=== PATIENT | male | born 1975 | race Caucasian/White ===

== ENCOUNTER → 2021-04-14 12:46 | Outpatient (ROUT) | payer OTHER, SELFPAY ==
[2021-04-14 13:59] LABS: COVID19 -Nasal RAPID POSITIVE (Negative)
== END ==
PROVIDERS: Visit Provider Family Medicine
DX: U07.1 COVID-19 (principal)
CPT/HCPCS: 87635

== ENCOUNTER → 2021-09-20 11:57 | Outpatient (CLI) | payer OTHER, SELFPAY ==
[2021-09-20 13:04] LABS: Influenza A - CEPHEID Flu A NEGATIVE (NEGATIVE); Influenza B - CEPHEID Flu B NEGATIVE (NEGATIVE)
[2021-09-20 13:24] LABS: COVID-19 CEPHEID PCR (VTM/NP) Negative (Negative)
== END ==
PROVIDERS: Visit Provider Physician Assistant
DX: Z20.822 Contact with and (suspected) exposure to COVID-19 (principal); R09.81 Nasal congestion
CPT/HCPCS: 0240U

== ENCOUNTER 2022-06-22 00:15 | Emergency (ER) | payer OTHER, MEDICAID, SELFPAY ==
[2022-06-22] VITALS (11 sets, daily range): BP systolic 162–217; BP diastolic 75–100; PULSE 64–85; RESP 17–32; TEMP 36.9; O2SAT 94–99; BMI 44.4
--- NOTE | 2022-06-22 00:20 | ED_ITS ---
HPI - SOB/Dyspnea General Chief Complaint: Shortness of Breath/Dyspnea Stated Complaint: hard time breathing, panic attacks Time Seen by Provider: 06/22/22 00:19 History of Present Illness HPI Narrative: 47-year-old male former smoker with history of coronary artery disease, CHF, COPD presents with a chief complaint of difficulty breathing for about the past week and feeling panicky. He states that he is had increasing shortness of breath, particularly when he lays flat and a harsh sounding cough. He is not dizzy nor weak or lightheaded. He denies any sputum production. He is had no runny nose, sore throat nor nausea, vomiting or diarrhea. He denies any exertional symptoms or recent travel. He denies any history of blood clot or known cancer. He denies any weight gain or swelling of his lower extremities. He denies any change in his medications or diet. Related Data Previous Rx's Medication Instructions Recorded azithromycin 250 mg tablet See Rx Instructions PO .COMPLEX #6 09/20/21 tabs amoxicillin 500 mg-potassium 1 tab PO Q8H bacterial sinusitis 06/16/22 clavulanate 125 mg tablet 10 days #30 tabs (Augmentin) doxycycline hyclate 100 mg tablet 100 mg PO BID #20 tabs 06/22/22 prednisone 20 mg tablet 40 mg PO DAILY 5 days #10 tabs 06/22/22 Allergies Allergy/AdvReac Type Severity Reaction Status Date / Time lisinopril Allergy Severe Hypotension Verified 06/22/22 00:29 Review of Systems Review of Systems Narrative: GENERAL: Denies chills, fatigue, malaise, fever, sweats. HEENT: Denies sinus pain, ear pain, sore throat, difficulty swallowing, dizzi ness. RESPIRATORY: See HPI CARDIOVASCULAR: Denies chest pain, palpitations, orthopnea, edema, GASTROINTESTINAL: Denies nausea, vomiting, abdominal pain, diarrhea, constipation, melena. : Denies dysuria, frequency, incontinence, hematuria, urinary retention. MUSCULOSKELETAL: denies weakness, joint pain, or bony pain SKIN: Denies rash, skin lesions, or other NEUROLOGIC: Denies weakness, headache, numbness, change in speech, confusion, seizures, incoordination. PSYCHIATRIC: No concerning psychosocial issues. 12 point review of systems is negative except for those stated above Patient History Social History Smoking Status: Former smoker Smoking Status: Former smoker Exam Narrative Exam Narrative: GENERAL: [47] year old patient appears stated age. Well-developed patient, in mild distress. Anxious HEAD: Atraumatic. Normocephalic. EYES: Pupils equal round and reactive. Extraocular motions intact. No scleral icterus. No injection or drainage. ENT: Nose without bleeding, purulent drainage. Throat without erythema, tonsillar hypertrophy or exudate. Airway patent. NECK: Trachea midline. Non tender CARDIOVASCULAR: Regular rate and rhythm without murmurs, gallops, or rubs. RESPIRATORY: Tachypnea, harsh breath sounds with prolonged expiratory phase, coarse in the bases, no rales or rhonchi GASTROINTESTINAL: Abdomen soft, non-tender, nondistended. EXTREMITIES: No edema or joint tenderness. BACK: Nontender without deformity or crepitance. No flank tenderness. NEURO: AOx3. SKIN: No rash or erythema of visible areas Initial Vital Signs Initial Vital Signs: Vital Signs Temperature 98.4 F 06/22/22 00:29 Pulse Rate 80 06/22/22 00:29 Respiratory Rate 28 H 06/22/22 00:29 Blood Pressure 217/100 H 06/22/22 00:29 Pulse Oximetry 94 06/22/22 00:29 Oxygen Delivery Method 06/22/22 00:29 Course Orders Ordered: ED Orders 06/22/22 00:25 XR chest 2V Stat 06/22/22 00:29 Complete Blood Count AUTO DIFF Stat Comprehensive Metabolic Panel Stat D Dimer Stat Magnesium Stat NT-proBNP (BNP-Adult 18+) Stat Procalcitonin Stat Troponin & CK Cardiac Panel Stat 06/22/22 00:30 Covid-19 + FLU A/B + RSV - PCR Stat Discontinued Medications Albuterol/Ipratropium (Albuterol/Ipratropium 3 Ml Ampul) 3 ml INH NOW ONE Stop: 06/22/22 00:33 Last Admin: 06/22/22 00:55 Dose: 3 ml Documented By: RHYS Methylprednisolone (Methylprednisolone 125 Mg/2 Ml Vial) 125 mg IV NOW ONE Stop: 06/22/22 00:33 Last Admin: 06/22/22 00:47 Dose: 125 mg Documented By: TANA Reevaluation(s) Reevaluation #1: Blood pressure initially in the 200s has dropped the 170s after initial evaluation and treatments. No specific antihypertensive therapy initiated. Vital Signs Vital signs: Vital Signs - 8 hr 06/22/22 00:29 06/22/22 01:07 Temperature 98.4 F Pulse Rate 80 77 Respiratory Rate 28 H 24 Blood Pressure 217/100 H Pulse Oximetry 94 99 Oxygen Delivery Method Room Air Aerosol Mask MDM - SOB/Dyspnea Lab Data Result diagrams: 06/22/22 00:29 06/22/22 00:29 Labs: Lab Results 06/22/22 06/22/22 06/22/22 Range/Units 00:29 00:29 00:29 WBC 10.5 (4.5-11.0) X10^3/uL RBC 5.86 (4.5-5.9) X10^6/uL Hgb 16.2 (13.5-17.5) g/dL Hct 47.6 (41-53) % MCV 81.3 (80-100) fL MCH 27.7 (26-34) PG MCHC 34.0 (30-36) % RDW 14.0 (11.6-14.8) % Plt Count 239 (150-400) X10^3/uL Neut % (Auto) 69.7 (50-75) % Lymph % (Auto) 18.8 L (25-40) % [place] % (Auto) 8.4 (3-14) % Eos % (Auto) 2.2 (2-4) % Baso % (Auto) 0.9 (0-2) % Neut # (Auto) 7300 H (3100-9139) /uL Lymph # (Auto) 2000 (9022-6253) /uL [place] # (Auto) 900 (0-900) /uL Eos # (Auto) 200 (0-450) /uL Baso # (Auto) 100 (0-100) /uL D-Dimer 298 (<500) ng/ml Sodium 138 (137-145) mmol/L Potassium 4.0 (3.4-5.1) mmol/L Chloride 104 (98-107) mmol/L Carbon Dioxide 24 (22-32) mmol/L BUN 13 (9-20) mg/dL Creatinine 0.95 (0.66-1.25) mg/dL Estimated GFR > 60 (>60) mL/min BUN/Creatinine Ratio 13.7 (6-22) Glucose 177 H (70-100) mg/dL Calcium 8.9 (8.4-10.2) mg/dL Magnesium 1.9 (1.6-2.3) mg/dL Total Bilirubin 0.5 (0.2-1.3) mg/dL AST 29 (17-59) IU/L ALT 57 H (<50) IU/L Alkaline Phosphatase 83 (38-126) U/L Total Creatine Kinase 197 H (55-170) U/L CK-MB (CK-2) 0.98 (<2.37) ng/mL CK-MB (CK-2) Rel Index 0.5 L (1.5-5.0) % Troponin I < 0.012 (0.01-0.034) ng/mL NT-Pro-B Natriuret Pep 25 (<125) pg/mL Total Protein 8.4 H (6.3-8.2) g/dL Albumin 4.6 (3.5-5.0) g/dL Globulin 3.8 (1.7-4.1) g/dL Albumin/Globulin Ratio 1.2 (1.0-2.8) Procalcitonin (<0.5) ng/mL SARS-CoV-2 (PCR) (Negative) Influenza A (RT-PCR) (NEGATIVE) Influenza B (RT-PCR) (NEGATIVE) RSV (PCR) (Negative) 06/22/22 06/22/22 Range/Units 00:29 00:30 WBC (4.5-11.0) X10^3/uL RBC (4.5-5.9) X10^6/uL Hgb (13.5-17.5) g/dL Hct (41-53) % MCV (80-100) fL MCH (26-34) PG MCHC (30-36) % RDW (11.6-14.8) % Plt Count (150-400) X10^3/uL Neut % (Auto) (50-75) % Lymph % (Auto) (25-40) % [place] % (Auto) (3-14) % Eos % (Auto) (2-4) % Baso % (Auto) (0-2) % Neut # (Auto) (3591-3067) /uL Lymph # (Auto) (1876-8609) /uL [place] # (Auto) (0-900) /uL Eos # (Auto) (0-450) /uL Baso # (Auto) (0-100) /uL D-Dimer (<500) ng/ml Sodium (137-145) mmol/L Potassium (3.4-5.1) mmol/L Chloride (98-107) mmol/L Carbon Dioxide (22-32) mmol/L BUN (9-20) mg/dL Creatinine (0.66-1.25) mg/dL Estimated GFR (>60) mL/min BUN/Creatinine Ratio (6-22) Glucose (70-100) mg/dL Calcium (8.4-10.2) mg/dL Magnesium (1.6-2.3) mg/dL Total Bilirubin (0.2-1.3) mg/dL AST (17-59) IU/L ALT (<50) IU/L Alkaline Phosphatase (38-126) U/L Total Creatine Kinase (55-170) U/L CK-MB (CK-2) (<2.37) ng/mL CK-MB (CK-2) Rel Index (1.5-5.0) % Troponin I (0.01-0.034) ng/mL NT-Pro-B Natriuret Pep (<125) pg/mL Total Protein (6.3-8.2) g/dL Albumin (3.5-5.0) g/dL Globulin (1.7-4.1) g/dL Albumin/Globulin Ratio (1.0-2.8) Procalcitonin 0.06 (<0.5) ng/mL SARS-CoV-2 (PCR) Negative (Negative) Influenza A (RT-PCR) Flu a negative (NEGATIVE) Influenza B (RT-PCR) Flu b negative (NEGATIVE) RSV (PCR) Negative (Negative) Imaging Data Chest x-ray: Radiologist's Impression: [address] [id number] ReportSigned Patient: Rachelle Robles WMR#: [id number]: [id number]:[id number]/Sex: 76 / FDate of Service: 06/21/22Loc: EDAccession Number: [id number] Procedure: XR chest 2V Ordering Provider: Amol Narvaez D.O. PROCEDURE: XR CHEST 2V INDICATIONS: Right side pleuritic type chest pain, known lung CA TECHNIQUE: 2 views of the chest were acquired. COMPARISON: [facility], CT, CT CHEST W CON, 06/01/2022, 9:22. [facility], CR, XR CHEST 2V, 05/29/2022, 19:18. FINDINGS: Surgical changes and devices: The right internal jugular Port-A-Cath appears stable in position. Lungs and pleura: There are patchy bilateral opacities as well as confluent opacities in the right upper lung zone redemonstrated. Findings are similar to the prior chest x-ray. There is a persistent small left pleural effusion as well as a loculated right apical effusion. No evidence of pneumothorax. Mediastinum: Mediastinal contours are normal. Heart size is normal. Bones and chest wall: No suspicious bony abnormalities. Soft tissues appear unremarkable. IMPRESSION: 1. Persistent loculated right apical effusion and small left layering effusion which appear similar to the recent studies. 2. Persistent patchy bilateral opacities with areas of confluence in the right upper lung zone consistent with history of lung cancer and posttreatment changes. Overall findings are similar to the recent prior studies. Dictated by: Sterling Chang M.D. on 06/22/2022 at 0:53 Approved by: Sterling Chang M.D. on 06/22/2022 at 1:06 MDM Narrative Medical decision making narrative: Multiple etiologies for patient's symptoms considered including: [Pulmonary embolism versus CHF exacerbation versus COPD exacerbation versus pneumonia versus atypical pneumonia versus myocardial infarction versus other Multiple causes of chest pain considered including AR, PE, pneumothorax, pneumonia, aortic dissection, and pleurisy. Patient reports no radiation, no diaphoresis, no provocation with exertion, and no vomiting. Imaging would suggest against typical pneumonia. Furthermore he has no fever, typical lung sounds, elevated white blood cell count, procalcitonin. CHF exacerbation given reported shortness breath and orthopnea, however no swelling, exertional dyspnea, classic findings on imaging or elevated BNP. Pulmonary embolism considered but advanced imaging not pursued given negative D-dimer. Coarse lung sounds, improvement with bronchodilators and steroids would suggest a COPD exacerbation. Given chronicity of his symptoms and history of smoking we discussed the utility of coverage for atypical pneumonia, it is recognized that he is currently on a penicillin derivative for the treatment of sinusitis, however this is not likely to provide great coverage for atypicals so he is encouraged to take both Patient's symptoms improved over duration of stay with above-stated therapies. Findings and discharge diagnosis discussed with patient/family followed by verbalization of understanding Return precautions discussed with patient/family whom verbalize understanding. Discharge Plan Departure Patient Disposition: Home Clinical Impression: Acute exacerbation of chronic obstructive pulmonary disease, Atypical pneumonia Instructions: DI for Atypical Pneumonia Activity Restrictions/Additional Instructions: *You have been diagnosed with [COPD exacerbation and atypical pneumonia] *What to do: *Please continue to take your regular medications as directed. [x ] New medication prescriptions sent to your pharmacy: [ [facility]] [ ] New medication written as a paper prescription [ ] No new medications given *Please follow up with your primary care provider on Wednesday as planned, however as we discussed, please still call the office and let them know that you were seen in the emergency department so they may review the records at your appointment *Return to Emergency Department if you should have any new, worsening or concerning symptoms, such as [fever greater than 101 F, shaking chills, worsening pain, persistent vomiting or other bothersome symptoms] Prescriptions: New doxycycline hyclate 100 mg tablet 100 mg PO BID Qty: 20 0RF prednisone 20 mg tablet 40 mg PO DAILY 5 Days Qty: 10 0RF No Action azithromycin 250 mg tablet See Rx Instructions PO .COMPLEX Qty: 6 0RF Rx Instructions: Take 2 tablets (500mg) by mouth today (day 1), then 1 tablet (250mg) by mouth for 4 days (days 2-5). Finish all of this medication. amoxicillin-pot clavulanate [Augmentin] 500-125 mg tablet 1 tab PO Q8H 10 Days Qty: 30 0RF Referrals: Miscellaneous,Doctor, MD [Primary Care Provider] -
--- NOTE | 2022-06-22 00:25 | DI.RAD.S_ITS ---
PROCEDURE: XR CHEST 2V INDICATIONS: SOB TECHNIQUE: 2 views of the chest were acquired. COMPARISON: None. FINDINGS: Surgical changes and devices: There are postsurgical changes in the mediastinum. Lungs and pleura: Lungs are clear. No pleural effusions or pneumothorax. Mediastinum: Mediastinal contours are normal. Heart size is normal. Bones and chest wall: No suspicious bony abnormalities. Soft tissues appear unremarkable. IMPRESSION: 1. No acute cardiopulmonary disease. Dictated by: Sterling Chang M.D. on 06/22/2022 at 1:27 Approved by: Sterling Chang M.D. on 06/22/2022 at 1:29
[2022-06-22 00:43] LABS: Add Manual Diff / Slide Review NO; Basophils Absolute Auto 100 /uL (0-100); Basophils Percent Auto 0.9 % (0-2); Eosinophils Absolute Auto 200 /uL (0-450); Eosinophils Percent Auto 2.2 % (2-4); Hematocrit 47.6 % (41-53); Hemoglobin 16.2 g/dL (13.5-17.5); Lymphocytes Absolute Auto 2000 /uL (1100-4500); Lymphocytes Percent Auto 18.8 % (25-40); Mean Corpuscular Hemoglobin 27.7 PG (26-34); Mean Corpuscular Volume 81.3 fL (80-100); Monocytes Absolute Auto 900 /uL (0-900); Monocytes Percent Auto 8.4 % (3-14); Neutrophils Absolute Auto 7300 /uL (1500-7000); Neutrophils Percent Auto 69.7 % (50-75); Platelet Count 239 X10^3/uL (150-400); Red Blood Cell Count 5.86 X10^6/uL (4.5-5.9); White Blood Cell Count 10.5 X10^3/uL (4.5-11.0)
[2022-06-22] MEDS: methylPREDNISolone 125 MG/2 ML VIAL IV (00:47)
[2022-06-22 00:49] LABS: D Dimer 298 ng/ml (<500)
[2022-06-22 00:52] LABS: Alanine Aminotransferase 57 IU/L (<50); Albumin 4.6 g/dL (3.5-5.0); Albumin Globulin Ratio 1.2 (1.0-2.8); Alkaline Phosphatase 83 U/L (38-126); Aspartate Aminotransferase 29 IU/L (17-59); BUN Creatinine Ratio 13.7 (6-22); Bilirubin Total 0.5 mg/dL (0.2-1.3); Blood Urea Nitrogen 13 mg/dL (9-20); Calcium 8.9 mg/dL (8.4-10.2); Carbon Dioxide 24 mmol/L (22-32); Chloride 104 mmol/L (98-107); Creatine Kinase 197 U/L (55-170); Estimated Glomerular Filt Rate > 60 mL/min (>60); Globulin 3.8 g/dL (1.7-4.1); Glucose 177 mg/dL (70-100); HEMOLYSIS 22 (0-50); Magnesium 1.9 mg/dL (1.6-2.3); Sodium 138 mmol/L (137-145); Total Protein 8.4 g/dL (6.3-8.2)
[2022-06-22] MEDS: ALBUTEROL/IPRATROPIUM 3 ML AMPUL INH (00:55)
[2022-06-22 01:04] LABS: NT-proBNP (BNP-Adult 18+) 25 pg/mL (<125); Troponin I < 0.012 ng/mL (0.01-0.034)
[2022-06-22 01:07] LABS: CKMB % Relative Index 0.5 % (1.5-5.0); Creatine Kinase MB 0.98 ng/mL (<2.37)
[2022-06-22 01:08] LABS: Procalcitonin 0.06 ng/mL (<0.5)
[2022-06-22 01:17] LABS: Influenza A - CEPHEID Flu A NEGATIVE (NEGATIVE); Influenza B - CEPHEID Flu B NEGATIVE (NEGATIVE); Respiratory Syncytial Virus Negative (Negative)
[2022-06-22 01:21] LABS: COVID-19 CEPHEID 4-PLEX PCR Negative (Negative)
== END 2022-06-22 02:39 | disposition home or self-care (01) ==
PROVIDERS: Emergency Provider Emergency Medicine
DX: J44.1 Chronic obstructive pulmonary disease with (acute) exacerbation (principal); J18.9 Pneumonia, unspecified organism; Z20.822 Contact with and (suspected) exposure to COVID-19
CPT/HCPCS: 0241U; 36415; 71046; 80053; 82550; 82553; 83735; 83880; 84145; 84484; 85025; 85379; 94640; 96374; 99284; J2930

== ENCOUNTER → 2022-08-21 13:35 | Outpatient (CLI) | payer OTHER, MEDICAID, SELFPAY ==
[2022-08-21 14:17] LABS: COVID19 -Nasal RAPID Negative (Negative)
== END ==
PROVIDERS: PCP Family Medicine; Visit Provider Surgery
DX: Z20.822 Contact with and (suspected) exposure to COVID-19 (principal); Z01.812 Encounter for preprocedural laboratory examination
CPT/HCPCS: 87635; C9803

== ENCOUNTER 2022-08-24 14:17 | Day surgery (SDC) | payer OTHER, MEDICAID, SELFPAY ==
--- NOTE | 2022-08-24 | PATH_ITS ---
[facility] Accession Number: [id number] . 01 Material submitted: . PART A: colon - ASCENDING COLON POLYP PART B: colon - DESCENDING COLON POLYP . 01 Diagnosis: A. Ascending Colon Polyp: Tubular adenoma. . B. Descending Colon Polyp: Tubular adenoma. MRV 08/26/2022 1505 Local . 01 Electronically signed: . Jam Parson MD, PhD, Pathologist NPI- [id number] . 01 Gross description: . Part A: ASCENDING COLON POLYP: Received in formalin is 1 fragment(s) of ware, soft tissue measuring 0.3 x 0.2 x 0.1 cm submitted entirely in 1 cassette(s) Part B: DESCENDING COLON POLYP: Received in formalin are multiple fragment(s) of ware, soft tissue measuring 2.7 x 0.5 x 0.1 cm in aggregate submitted entirely in 1 cassette(s) /CPE 08/25/2022 1026 Local . 01 Pathologist provided ICD-10: D12.2, D12.4 . 01 CPT . 724781, 675974 Specimen Comment: A courtesy copy of this report has been sent to [phone], [phone] Specimen Comment: [id number] Performed at: 01 [facility] [address] [place] [address], [place], [place] [id number] MD Sterling Villanueva MD Phone: [phone]
[2022-08-24 15:42] VITALS: BMI 44.4
--- NOTE | 2022-08-24 15:51 | PM.HP.1 ---
History of Present Illness History of Present Illness Date Patient Seen: 08/24/22 Time Patient Seen: 15:51 Chief complaint: Colonoscopy Narrative: I reviewed my recent office note. No significant changes. Patient History Family & Social History Social History: household members spouse Tobacco & Substance use: Smoking Status Former smoker alcohol intake never Substance Use Type does not use Meds Home Medications and Allergies Home Medications Medication Instructions Recorded Confirmed Type amlodipine 10 mg tablet 10 mg PO DAILY 08/24/22 08/24/22 History aspirin 81 mg chewable tablet 81 mg PO BID 08/24/22 08/24/22 History atorvastatin 80 mg tablet 80 mg PO BEDTIME 08/24/22 08/24/22 History gabapentin 300 mg capsule 300 mg PO BEDTIME PRN Pain (Scale 08/24/22 08/24/22 History Score 1-3) metoprolol succinate 100 mg 100 mg PO DAILY 08/24/22 08/24/22 History capsule sprinkle, ext. release 24 hr telmisartan 80 mg tablet 80 mg PO DAILY 08/24/22 08/24/22 History Allergies Allergy/AdvReac Type Severity Reaction Status Date / Time lisinopril Allergy Severe Hypotension Verified 08/24/22 15:36 Review of Systems Review of Systems ROS: Yes All systems reviewed with the patient and are negative except as otherwise documented Exam Const General: cooperative HENMT Head: normal to inspection Eyes General: appearance normal, both eyes and all related structures Neck Neck: normal visual inspection Chest Chest: normal inspection of the chest Resp Effort & Inspection: normal respiratory effort Cardio Rate: regular rate GI Inspection: normal to inspection Skin General: no rashes or lesions noted Neuro General: patient alert and patient awake Extrem General: normal to inspection and no pedal edema Psych Appearance: grossly normal Assessment & Plan Assessment & Plan narrative: 47-year-old male with a positive FIT. Colonoscopy is pursued today. Time Spent With Patient Critical Care time: I spent a total of [] minutes of critical care time on this patient's care today; this time is exclusive of procedural time.
--- NOTE | 2022-08-24 15:52 | PM.PREOP ---
Pre-operative Note COVID-19 COVID-19 status: Negative Result date/Date tested (Pos, Neg/Pending): 08/21/22 Criteria for continued procedure: Possibility delay results in more complex future surgery or treatment Interval Note History & Physical reviewed/Exam performed by Physician: Yes Changes to H&P: No ASA Class (for procedural sedation): III
[2022-08-24 15:54] VITALS: BP 129/68; PULSE 59; RESP 14; TEMP 36.3; O2SAT 99
[2022-08-24] MEDS: LACTATED RINGERS 1,000 ML 42 ML IV (15:56)
--- NOTE | 2022-08-24 17:41 | PM.OP.COLON ---
Operative Date/Time/Diagnoses Date of procedure: 08/24/22 Time of procedure: 17:41 Pre-op diagnosis: Positive FIT Post-op diagnosis: same Procedure & Clinicians Study performed: Colonoscopy with hot snare polypectomy Same procedure as scheduled: Yes Indications: Positive FIT Surgeon: González Velez Procedure Notes SCOAP/Timeout: Done Procedure in detail: After the risks and benefits were explained, written and verbal informed consent was obtained. The patient was brought into the procedure room and placed into the left lateral decubitus position. Please see anesthesia note for sedation details. Digital rectal examination was accomplished. The scope was introduced into the patient and advanced under direct visualization to the cecum as identified by the appendiceal orifice and ileocecal valve. The scope was slowly withdrawn to carefully examine the mucosa for any defects or lesions. Comprehensive imaging was accomplished throughout the rectum including the dentate line. The colon was decompressed, the scope was then removed from the patient who tolerated the procedure well. Adult colonoscope Bowel prep adequate Scope withdrawal time: 20 minutes Sedation minutes: 26 Complications: none Impression: There was grade 2 internal hemorrhoids. There was a diminutive 4-5 mm sessile polyp removed with cold snare in the ascending colon. In the descending colon about 45 cm from the anal verge there was a pedunculated polyp perhaps 9-10 mm in greatest dimension removed with snare. Initial attempt was with hot snare but the snare came through cold. There was a small amount of oozing of blood following the polypectomy. I regrasped the stalk with the snare and using cautery cut through the stalk a 2nd time. There was no subsequent bleeding. The polyp was retrieved. In order to prophylax against future bleeding a single endo clip was placed over the polypectomy site. No additional pathology was appreciated throughout. Endoscopic diagnosis 1. Colon polyps 2. Grade 2 hemorrhoids Post-procedure Plan for aftercare: 1. Await histopathology. 2. Repeat colonoscopy 3 years Disposition: PACU
[2022-08-24 17:47] VITALS: BP 136/113; PULSE 67; RESP 9; TEMP 36.6; O2SAT 94
[2022-08-24 17:52] VITALS: BP 118/60; PULSE 73; RESP 11; O2SAT 94
[2022-08-24 17:57] VITALS: BP 119/64; PULSE 69; RESP 10; O2SAT 94
[2022-08-24 17:59] VITALS: BP 112/61; PULSE 60; RESP 11; TEMP 36.5; O2SAT 99
== END 2022-08-24 18:10 | disposition home or self-care (01) ==
PROVIDERS: PCP Family Medicine; Referring Provider Internal Medicine Gastroenterology; Visit Provider Internal Medicine Gastroenterology
PROC: 0DJD8ZZ Inspection of Lower Intestinal Tract, Via Natural or Artificial Opening Endoscopic (ICD-10-PCS; CPT 45378; principal; 2022-08-24 15:30)
DX: Z12.11 Encounter for screening for malignant neoplasm of colon (principal); R19.5 Other fecal abnormalities; J44.9 Chronic obstructive pulmonary disease, unspecified; G47.30 Sleep apnea, unspecified; K64.1 Second degree hemorrhoids
CPT/HCPCS: 45385

== ENCOUNTER 2022-09-16 18:53 | Emergency (ER) | payer OTHER, MEDICAID, SELFPAY ==
[2022-09-16 18:59] VITALS: BP 164/75; PULSE 74; RESP 22; TEMP 36.8; O2SAT 97; BMI 43.9
--- NOTE | 2022-09-16 19:06 | DI.RAD.S_ITS ---
PROCEDURE: XR CHEST 2V INDICATIONS: Shortness of breath, hx COPD, asthma TECHNIQUE: 2 views of the chest were acquired. COMPARISON: [facility], CR, XR CHEST 2V, 06/22/2022, 0:25. FINDINGS: Surgical changes and devices: Median sternotomy. Lungs and pleura: Lungs are clear. No pleural effusions or pneumothorax. Mediastinum: Mediastinal contours are normal. Heart size is normal. Bones and chest wall: No suspicious bony abnormalities. Soft tissues appear unremarkable. IMPRESSION: No acute process. Dictated by: Gin Herring M.D. on 09/16/2022 at 19:22 Approved by: Gin Herring M.D. on 09/16/2022 at 19:22
[2022-09-16 19:54] LABS: Influenza A - CEPHEID Flu A NEGATIVE (NEGATIVE); Influenza B - CEPHEID Flu B NEGATIVE (NEGATIVE); Respiratory Syncytial Virus Negative (Negative)
[2022-09-16 20:12] LABS: COVID-19 CEPHEID 4-PLEX PCR Negative (Negative)
--- NOTE | 2022-09-16 21:17 | ED_ITS ---
HPI - URI/Sore Throat General Chief Complaint: Upper Respiratory Symptoms Stated Complaint: difficulty breathing, ran out of his meds Time Seen by Provider: 09/16/22 20:59 Source: patient Mode of arrival: Family Vehicle History of Present Illness HPI Narrative: Patient is a 47-year-old male history of CABG x3, hypertension hyperlipidemia asthma/COPD presenting today with upper respiratory like symptoms. He says he woke up this morning and felt fine however throughout the day and afternoon he felt some nasal congestion some sinus pressure I felt it going into his lungs he feels like he can not breathe. He is currently out of his inhalers as well. He is not had fever and is afebrile here. He feels short of breath with exertion a nd breasts. Try to use his albuterol and both of them are empty. No significant swelling no nausea or vomiting. Related Data Home Medications Medication Instructions Recorded Confirmed amlodipine 10 mg tablet 10 mg PO DAILY 08/24/22 08/24/22 aspirin 81 mg chewable tablet 81 mg PO BID 08/24/22 08/24/22 atorvastatin 80 mg tablet 80 mg PO BEDTIME 08/24/22 08/24/22 gabapentin 300 mg capsule 300 mg PO BEDTIME PRN Pain (Scale 08/24/22 08/24/22 Score 1-3) metoprolol succinate 100 mg 100 mg PO DAILY 08/24/22 08/24/22 capsule sprinkle, ext. release 24 hr telmisartan 80 mg tablet 80 mg PO DAILY 08/24/22 08/24/22 Previous Rx's Medication Instructions Recorded albuterol sulfate 90 mcg/actuation 2 puff inhalation Q4-6H PRN 09/16/22 aerosol inhaler shortness of breath or wheezing #8.5 grams prednisone 20 mg tablet 40 mg PO DAILY #10 tabs 09/16/22 Allergies Allergy/AdvReac Type Severity Reaction Status Date / Time lisinopril Allergy Severe Hypotension Verified 09/16/22 18:59 Review of Systems Review of Systems ROS Unobtainable: All systems reviewed & are unremarkable except as noted in HPI and below Patient History Social History household members: spouse Smoking Status: Former smoker alcohol intake: never Smoking Status: Former smoker tobacco type: cigarettes alcohol intake frequency: 0-2 drinks per day Substance Use Type: does not use Exam Initial Vital Signs Initial Vital Signs: Vital Signs Temperature 98.3 F 09/16/22 18:59 Pulse Rate 74 09/16/22 18:59 Respiratory Rate 22 09/16/22 18:59 Blood Pressure 164/75 H 09/16/22 18:59 Pulse Oximetry 97 09/16/22 18:59 Oxygen Delivery Method 09/16/22 18:59 GENERAL: 47-year-old male appears to not feel and in no acute distress. HEENT: Head atraumatic,EOMI, pupils reactive, face symmetric, moist mucous membranes CARDIOVASCULAR: Regular rate and rhythm without murmurs, rubs or gallops. RESPIRATORY: Mild tachypnea breath sounds clear without wheezing rales or rhonchi ABDOMEN: Soft, nontender. Normoactive bowel sounds all 4 quadrants. No guarding or rebound. EXTREMITIES: Normal range of motion, no clubbing or edema. Neurovascularly intact NEUROLOGICAL: Alert and oriented x4.Normal gait and speech. SKIN: Warm, dry, no laceration, no petechiae, no rashes or lesions. Course Orders Ordered: ED Orders 09/16/22 22:00 Complete Blood Count AUTO DIFF Stat Comprehensive Metabolic Panel Stat Lipase Stat NT-proBNP (BNP-Adult 18+) Stat Procalcitonin Stat Troponin & CK Cardiac Panel Stat Discontinued Medications Albuterol (Albuterol Hfa Prepack) 1 box MISC SEEINSTR ONE Stop: 09/16/22 22:37 Last Admin: 09/16/22 22:59 Dose: 1 box Documented By: TK Albuterol/Ipratropium (Albuterol/Ipratropium 3 Ml Ampul) 3 ml INH NOW ONE Stop: 09/16/22 21:24 Last Admin: 09/16/22 21:31 Dose: 3 ml Documented By: RHYS Vital Signs Vital signs: Vital Signs - 8 hr 09/16/22 22:57 Temperature 97.2 F L Pulse Rate 88 Respiratory Rate 18 Blood Pressure 150/82 H Pulse Oximetry 98 Oxygen Delivery Method Room Air MDM - URI/Sore Throat Lab Data 09/16/22 22:00 09/16/22 22:00 Labs: Lab Results 09/16/22 09/16/22 09/16/22 Range/Units 19:08 22:00 22:00 WBC 11.5 H (4.5-11.0) X10^3/uL RBC 5.23 (4.5-5.9) X10^6/uL Hgb 14.4 (13.5-17.5) g/dL Hct 42.8 (41-53) % MCV 81.8 (80-100) fL MCH 27.6 (26-34) PG MCHC 33.7 (30-36) % RDW 14.4 (11.6-14.8) % Plt Count 213 (150-400) X10^3/uL Neut % (Auto) 67.1 (50-75) % Lymph % (Auto) 21.2 L (25-40) % [place] % (Auto) 8.2 (3-14) % Eos % (Auto) 2.2 (2-4) % Baso % (Auto) 1.3 (0-2) % Neut # (Auto) 7700 H (0565-3131) /uL Lymph # (Auto) 2400 (7573-3555) /uL [place] # (Auto) 900 (0-900) /uL Eos # (Auto) 300 (0-450) /uL Baso # (Auto) 100 (0-100) /uL Sodium 138 (137-145) mmol/L Potassium 3.9 (3.4-5.1) mmol/L Chloride 104 (98-107) mmol/L Carbon Dioxide 26 (22-32) mmol/L BUN 14 (9-20) mg/dL Creatinine 1.05 (0.66-1.25) mg/dL Estimated GFR > 60 (>60) mL/min BUN/Creatinine Ratio 13.3 (6-22) Glucose 125 H (70-100) mg/dL Calcium 9.1 (8.4-10.2) mg/dL Total Bilirubin 0.5 (0.2-1.3) mg/dL AST 28 (17-59) IU/L ALT 48 (<50) IU/L Alkaline Phosphatase 71 (38-126) U/L Total Creatine Kinase 340 H (55-170) U/L CK-MB (CK-2) 1.00 (<2.37) ng/mL CK-MB (CK-2) Rel Index 0.3 L (1.5-5.0) % Troponin I < 0.012 (0.01-0.034) ng/mL NT-Pro-B Natriuret Pep (<125) pg/mL Total Protein 7.8 (6.3-8.2) g/dL Albumin 4.4 (3.5-5.0) g/dL Globulin 3.4 (1.7-4.1) g/dL Albumin/Globulin Ratio 1.3 (1.0-2.8) Lipase 49 (23-300) U/L Procalcitonin 0.06 (<0.5) ng/mL SARS-CoV-2 (PCR) Negative (Negative) Influenza A (RT-PCR) Flu a negative (NEGATIVE) Influenza B (RT-PCR) Flu b negative (NEGATIVE) RSV (PCR) Negative (Negative) 09/16/22 Range/Units 22:00 WBC (4.5-11.0) X10^3/uL RBC (4.5-5.9) X10^6/uL Hgb (13.5-17.5) g/dL Hct (41-53) % MCV (80-100) fL MCH (26-34) PG MCHC (30-36) % RDW (11.6-14.8) % Plt Count (150-400) X10^3/uL Neut % (Auto) (50-75) % Lymph % (Auto) (25-40) % [place] % (Auto) (3-14) % Eos % (Auto) (2-4) % Baso % (Auto) (0-2) % Neut # (Auto) (5349-6619) /uL Lymph # (Auto) (4124-1804) /uL [place] # (Auto) (0-900) /uL Eos # (Auto) (0-450) /uL Baso # (Auto) (0-100) /uL Sodium (137-145) mmol/L Potassium (3.4-5.1) mmol/L Chloride (98-107) mmol/L Carbon Dioxide (22-32) mmol/L BUN (9-20) mg/dL Creatinine (0.66-1.25) mg/dL Estimated GFR (>60) mL/min BUN/Creatinine Ratio (6-22) Glucose (70-100) mg/dL Calcium (8.4-10.2) mg/dL Total Bilirubin (0.2-1.3) mg/dL AST (17-59) IU/L ALT (<50) IU/L Alkaline Phosphatase (38-126) U/L Total Creatine Kinase (55-170) U/L CK-MB (CK-2) (<2.37) ng/mL CK-MB (CK-2) Rel Index (1.5-5.0) % Troponin I (0.01-0.034) ng/mL NT-Pro-B Natriuret Pep 53 (<125) pg/mL Total Protein (6.3-8.2) g/dL Albumin (3.5-5.0) g/dL Globulin (1.7-4.1) g/dL Albumin/Globulin Ratio (1.0-2.8) Lipase (23-300) U/L Procalcitonin (<0.5) ng/mL SARS-CoV-2 (PCR) (Negative) Influenza A (RT-PCR) (NEGATIVE) Influenza B (RT-PCR) (NEGATIVE) RSV (PCR) (Negative) Imaging Data Chest x-ray: Radiologist's Impression: Signed Patient: Israel Rashid MR#: [id number] : 1975 Acct:[id number] Age/Sex: 47 / M Date of Service: 09/16/22 Loc: Accession Number: [id number] ?? Procedure: XR chest 2V Ordering Provider: Sidra Lopez D.O. PROCEDURE:? XR CHEST 2V ? INDICATIONS:? Shortness of breath, hx COPD, asthma ? TECHNIQUE:? 2 views of the chest were acquired.? ? COMPARISON:? [facility], , XR CHEST 2V, 06/22/2022, 0:25. ? FINDINGS:? ? Surgical changes and devices:? Median sternotomy. ? Lungs and pleura:? Lungs are clear.? No pleural effusions or pneumothorax.? ? Mediastinum:? Mediastinal contours are normal.? Heart size is normal.? ? Bones and chest wall:? No suspicious bony abnormalities.? Soft tissues appear unremarkable.? ? IMPRESSION:? No acute process. ? ? Dictated by: Gin Herring M.D. on 09/16/2022 at 19:22 ? ? ECG Data Interpretation: Sinus rhythm rate 69 TN interval 168 QRS [address] changes no T-wave inv ersions room incomplete right bundle-branch block noted MDM Narrative Medical decision making narrative: Patient 47-year-old male history of hypertension hyperlipidemia asthma presenting today with upper respiratory like symptoms. He has not felt well this afternoon. No significant chest pain. However due to risk factors blood work and workup was done. Blood work is overall reassuring. Respiratory panel is negative. X-ray does not show any pneumonia. He did receive DuoNeb treatment here in the ED which actually helped quite a bit. He needs his albuterol medications refilled which I am happy to do for him. He is no signs of sepsis he is not hypoxic. He does not meet any criteria at this time. Here for it previously when he was ill like this he was given prednisone as well. Procalcitonin today is negative at 0.06. I do not think antibiotics would benefit him. Recommend supportive care only Discharge Plan Departure Patient Disposition: Home Clinical Impression: Upper respiratory infection Instructions: DI for Viral Upper Respiratory Infection -- Adult Activity Restrictions/Additional Instructions: *You have been diagnosed with upper respiratory infection *What to do: At this time no antibiotics needed. Make sure you stay hydrated use Tylenol as directed if needed for pain or fever *Continue to take medications as directed--> SENT TO [facility] Prednisone 40 mg once a day for 5 days may start tomorrow Albuterol 1-2 puffs every 4 hours if needed for cough or shortness of breath *Follow up with your primary care provider in 2-3 days or call [phone] *Return to ER if you should have increasing shortness of breath, increasing use of albuterol fever not tolerating fluids or any new, worsening or concerning symptoms Prescriptions: New prednisone 20 mg tablet 40 mg PO DAILY Qty: 10 0RF albuterol sulfate 90 mcg/actuation HFA aerosol inhaler 2 puff INHALATION Q4-6H PRN (Reason: shortness of breath or wheezing) Qty: 8.5 0RF No Action atorvastatin 80 mg Tablet 80 mg PO BEDTIME amlodipine 10 mg Tablet 10 mg PO DAILY telmisartan 80 mg Tablet 80 mg PO DAILY gabapentin 300 mg Capsule 300 mg PO BEDTIME PRN (Reason: Pain (Scale Score 1-3)) aspirin 81 mg Tablet,Chewable 81 mg PO BID metoprolol succinate 100 mg Capsule,[place] 24hr 100 mg PO DAILY Referrals: Abhishek Aguirre MD [Primary Care Provider] - Stand Alone Forms: Patient Portal/API
[2022-09-16 21:31] VITALS: PULSE 72; RESP 20; O2SAT 97
[2022-09-16] MEDS: ALBUTEROL/IPRATROPIUM 3 ML AMPUL INH (21:31)
[2022-09-16 22:08] LABS: Add Manual Diff / Slide Review NO; Basophils Absolute Auto 100 /uL (0-100); Basophils Percent Auto 1.3 % (0-2); Eosinophils Absolute Auto 300 /uL (0-450); Eosinophils Percent Auto 2.2 % (2-4); Hematocrit 42.8 % (41-53); Hemoglobin 14.4 g/dL (13.5-17.5); Lymphocytes Absolute Auto 2400 /uL (1100-4500); Lymphocytes Percent Auto 21.2 % (25-40); Mean Corpuscular HGB Conc 33.7 % (30-36); Mean Corpuscular Hemoglobin 27.6 PG (26-34); Mean Corpuscular Volume 81.8 fL (80-100); Monocytes Absolute Auto 900 /uL (0-900); Monocytes Percent Auto 8.2 % (3-14); Neutrophils Absolute Auto 7700 /uL (1500-7000); Neutrophils Percent Auto 67.1 % (50-75); Platelet Count 213 X10^3/uL (150-400); Red Blood Cell Count 5.23 X10^6/uL (4.5-5.9); Red Cell Distribution Width 14.4 % (11.6-14.8); White Blood Cell Count 11.5 X10^3/uL (4.5-11.0)
[2022-09-16 22:18] LABS: Alanine Aminotransferase 48 IU/L (<50); Albumin 4.4 g/dL (3.5-5.0); Albumin Globulin Ratio 1.3 (1.0-2.8); Alkaline Phosphatase 71 U/L (38-126); Aspartate Aminotransferase 28 IU/L (17-59); BUN Creatinine Ratio 13.3 (6-22); Bilirubin Total 0.5 mg/dL (0.2-1.3); Blood Urea Nitrogen 14 mg/dL (9-20); Calcium 9.1 mg/dL (8.4-10.2); Carbon Dioxide 26 mmol/L (22-32); Chloride 104 mmol/L (98-107); Creatine Kinase 340 U/L (55-170); Estimated Glomerular Filt Rate > 60 mL/min (>60); Globulin 3.4 g/dL (1.7-4.1); Glucose 125 mg/dL (70-100); HEMOLYSIS 22 (0-50); Lipase 49 U/L (23-300); Potassium 3.9 mmol/L (3.4-5.1); Sodium 138 mmol/L (137-145); Total Protein 7.8 g/dL (6.3-8.2)
[2022-09-16 22:28] LABS: NT-proBNP (BNP-Adult 18+) 53 pg/mL (<125)
[2022-09-16 22:30] LABS: Troponin I < 0.012 ng/mL (0.01-0.034)
[2022-09-16 22:33] LABS: CKMB % Relative Index 0.3 % (1.5-5.0)
[2022-09-16 22:35] LABS: Procalcitonin 0.06 ng/mL (<0.5)
[2022-09-16 22:57] VITALS: BP 150/82; PULSE 88; RESP 18; TEMP 36.2; O2SAT 98
[2022-09-16] MEDS: ALBUTEROL HFA PREPACK 1 BOX MISC (22:59)
== END 2022-09-16 22:59 | disposition home or self-care (01) ==
PROVIDERS: Emergency Provider Emergency Medicine; PCP Family Medicine
DX: J06.9 Acute upper respiratory infection, unspecified (principal); Z20.822 Contact with and (suspected) exposure to COVID-19
CPT/HCPCS: 0241U; 36415; 71046; 80053; 82550; 82553; 83690; 83880; 84145; 84484; 85025; 93005; 94640; 99284

== ENCOUNTER → 2024-07-28 11:38 | Outpatient (CLI) | payer OTHER, SELFPAY ==
--- NOTE | 2024-07-28 11:41 | DI.RAD.S_ITS ---
PROCEDURE: XR CHEST 2V INDICATIONS: COUGH TECHNIQUE: 2 views of the chest were acquired. COMPARISON: [facility], CR, XR CHEST 2V, 09/16/2022, 19:04. FINDINGS: Surgical changes and devices: Median sternotomy wires are seen. Lungs and pleura: There is mild bronchial wall thickening. No focal infiltrate. No pleural effusions or pneumothorax. Mediastinum: Mediastinal contours are normal. Heart size is normal. Bones and chest wall: No suspicious bony abnormalities. Soft tissues appear unremarkable. IMPRESSION: Finding is suggestive of mild reactive airway disease such as bronchitis or viral illness. No definite focal infiltrate. No pleural effusion or pneumothorax. Dictated by: Arthur Madrigal M.D. on 07/28/2024 at 13:30 Approved by: Arthur Madrigal M.D. on 07/28/2024 at 13:30
== END ==
PROVIDERS: PCP Family Medicine; Referring Provider Family Medicine; Visit Provider Family Medicine
DX: R05.1 Acute cough (principal)
CPT/HCPCS: 71046